=== PATIENT | female | born 1985 | race Two or more races ===

== ENCOUNTER 2018-12-10 09:55 | Emergency (ER) | payer SELFPAY | END 2018-12-10 10:02 | disposition left against medical advice (07) | LOC: ER 09:55 | DX: R06.02 Shortness of breath (principal); R11.2 Nausea with vomiting, unspecified; Z53.21 Procedure and treatment not carried out due to patient leaving prior to being seen by health care provider ==

== ENCOUNTER 2020-03-25 02:52 | Emergency (ER) | payer MEDICAID ==
[~2020-03-25] VITALS: Ht 167.6 cm; Wt 97.7 kg
[2020-03-25 03:41] VITALS: BP 140/74
--- NOTE | 2020-03-25 04:24 | PHYS DOC ---
Past Medical History Past Medical History: Anxiety, Asthma, Bipolar, Depression, Other Additional Past Medical Histor: CHRONIC KNEE PAIN Past Surgical History: Tubal ligation, Other Additional Past Surgical Histo: RIGHT KNEE SX 2007 Smoking Status: Former Smoker Alcohol Use: Occasionally Drug Use: None General Adult EDM: Chief Complaint: LOWER EXT PAIN HPI: HPI: 32-year-old female with underlying history of bipolar, asthma presents to the emergency department with complaints of right knee pain. Patient denies any in jury that she is aware of. She states she was walking her dog up a hill today and may have injured it that way however is unsure. Patient is able to ambulate however complains of pain. She has no evidence of erythema/warmth appreciated to right know. Patient denies fever, nausea, vomiting. Movements make her pain worse, nothing makes her pain better. Review of Systems: Review of Systems: Constitutional: Denies fever or chills. [] Respiratory: Denies cough or shortness of breath. [] Cardiovascular: Denies chest pain or edema. [] GI: Denies abdominal pain, nausea, vomiting, bloody stools or diarrhea. [] Musculoskeletal: No back pain, right knee pain Neurologic: Denies headache, focal weakness or sensory changes. [] Heart Score: Risk Factors: Risk Factors: DM, Current or recent (<one month) smoker, HTN, HLP, family history of CAD, obesity. Risk Scores: Score 0 - 3: 2.5% MACE over next 6 weeks - Discharge Home Score 4 - 6: 20.3% MACE over next 6 weeks - Admit for Clinical Observation Score 7 - 10: 72.7% MACE over next 6 weeks - Early Invasive Strategies Current Medications: Current Medications Medications (Trade) Dose Ordered Sig/[facility] Start Time Stop Time Status Last Admin Dose Admin Ketorolac Tromethamine (Toradol Im) 60 mg 1X ONCE 03/25/20 04:00 03/25/20 04:01 UNV Allergies: Allergies: Allergies Coded Allergies Type Severity Reaction Last Updated Verified No Known Drug Allergies 05/18/19 No Physical Exam: PE: Constitutional: Well developed, well nourished, no acute distress, non-toxic appearance. [] Cardiovascular:Heart rate regular rhythm, no murmur [] Lungs & Thorax: Bilateral breath sounds clear to auscultation [] Skin: Warm, dry, no erythema, no rash. [] Back: No tenderness, no CVA tenderness. [] Extremities: No tenderness, no cyanosis, no clubbing, ROM intact, no edema. [] Neurologic: Alert and oriented X 3, no focal deficits noted. [] Psychologic: Affect normal, judgement normal, mood normal. [] Current Patient Data: Vital Signs: Vital Signs Date Time Temp Pulse Resp B/P (MAP) Pulse Ox O2 Delivery O2 Flow Rate FiO2 03/25/20 03:41 97.8 65 16 140/74 (96) 99 Room Air 97.8 EKG: EKG: [] Radiology/Procedures: Radiology/Procedures: [] Course & Med Decision Making: Course & Med Decision Making Pertinent Labs and Imaging studies reviewed. (See chart for details) []32-year-old female with underlying history of bipolar, asthma presents to the emergency department with complaints of right knee pain. Patient denies any injury that she is aware of. She states she was walking her dog up a hill today and may have injured it that way however is unsure. Patient is able to ambulate however complains of pain. She has no evidence of erythema/warmth appreciated to right know. Patient denies fever, nausea, vomiting. Movements make her pain worse, nothing makes her pain better. Dragon Disclaimer: SADAR 3D Disclaimer: This electronic medical record was generated, in whole or in part, using a voice recognition dictation system. Departure Departure Impression: Primary Impression: Strain of right knee Qualified Codes: S86.911A - Strain of unspecified muscle(s) and tendon(s) at lower leg level, right leg, initial encounter Disposition: HOME, SELF-CARE Condition: STABLE Referrals: UNKNOWN PCP NAME (PCP) Patient Instructions: Knee Pain, [id number] Cyclobenzaprine Hcl (CYCLOBENZAPRINE HCL) 10 Mg Tablet 1 TAB PO TID PRN for MUSCLE SPASMS, #21 TAB Prov: CRISTAL ZALDIVAR MD 03/25/20 Tramadol Hcl (TRAMADOL HCL) 50 Mg Tablet 50 MG PO Q6-8HRS PRN for PAIN, #8 TAB 0 Refills Prov: CRISTAL ZALDIVAR MD 03/25/20 Justicifation of Admission Dx: Justifications for Admission: Justification of Admission Dx: N/A CRISTAL ZALDIVAR MD Mar 25, 2020 04:24
[2020-03-25] MEDS ORDERED: KETOROLAC 60 MG/2 ML VIAL. IM ONE (04:30)
[2020-03-25] MEDS ORDERED: TRAM50TA PO (04:42)
[2020-03-25] MEDS ORDERED: CYCL10TA2 PO (04:42)
--- NOTE | 2020-03-25 04:42 | RAD ---
Right knee 3 views: Reason for examination: Knee pain. Unknown injury. Previous right knee surgery. Comparison is made to previous studies dated 06/10/2019 and 02/24/2019. No acute fracture or dislocation is seen. There appears to be chronic fragmentation at the tibial tuberosity. Small lytic lesions with sclerotic margins are again seen at the distal femur and patella which are probably related to previous surgery. There are degenerative changes with some hypertrophic spurring. Joint spaces appear to be fairly well-maintained. No joint effusion is evident. IMPRESSION: No acute abnormality evident in the right knee. Electronically signed by: Evy Garcia MD (03/25/2020 4:39 AM) [id number]
== END 2020-03-25 04:50 | disposition home or self-care (01) ==
LOC: ER 02:52
DX: S86.811A Strain of other muscle(s) and tendon(s) at lower leg level, right leg, initial encounter (principal); F41.9 Anxiety disorder, unspecified; J45.909 Unspecified asthma, uncomplicated; G89.29 Other chronic pain; F32.9 Major depressive disorder, single episode, unspecified; Z98.51 Tubal ligation status; Z98.890 Other specified postprocedural states; Z87.891 Personal history of nicotine dependence; W54.8XXA Other contact with dog, initial encounter; Y93.89 Activity, other specified; Y92.89 Other specified places as the place of occurrence of the external cause; Y99.8 Other external cause status
CPT/HCPCS: 73562; 81025; 96372; 99283; J1885

== ENCOUNTER 2020-04-20 02:46 | Emergency (ER) | payer MEDICAID ==
[~2020-04-20] VITALS: Ht 167.6 cm; Wt 97.7 kg
[~2020-04-20 02:46] MED LIST: CYCL10TA2 PO; TRAM50TA PO
[2020-04-20] MEDS ORDERED: IV NORMAL SALINE 1000ML BAG 1,000 ML IV ONE (04:00)
[2020-04-20] MEDS ORDERED: diphenhydrAMINE 50 MG/ML VIAL IVP ONE (04:00)
[2020-04-20] MEDS ORDERED: METOCLOPRAMIDE HCL 10 MG/2 ML VIAL. IVP ONE (04:00)
[2020-04-20 04:20] LABS: BASO # 0.1 x10^3/uL (0.0-0.2); BASO % 1 % (0-3); EOS # 0.3 x10^3/uL (0.0-0.7); EOS % 4 % (0-3); HEMATOCRIT 41.7 % (36.0-47.0); HEMOGLOBIN 14.1 g/dL (12.0-15.5); LYMPH # 2.6 x10^3/uL (1.0-4.8); LYMPH % 31 % (24-48); MEAN CORPUSCULAR HEMOGLOBIN 32 pg (25-35); MEAN CORPUSCULAR HGB CONC 34 g/dL (31-37); MEAN CORPUSCULAR VOLUME 95 fL (79-100); MONO # 0.7 x10^3/uL (0.0-1.1); MONO % 8 % (0-9); NEUT # 4.6 x10^3/uL (1.8-7.7); NEUT % 56 % (31-73); PLATELET COUNT 254 x10^3/uL (140-400); RED BLOOD COUNT 4.41 x10^6/uL (3.50-5.40); RED CELL DISTRIBUTION WIDTH 13.3 % (11.5-14.5); WHITE BLOOD COUNT 8.2 x10^3/uL (4.0-11.0)
[2020-04-20 04:31] LABS: CALCIUM 8.1 mg/dL (8.5-10.1); CREATININE 0.9 mg/dL (0.6-1.0); GFR 72.6; POTASSIUM 3.5 mmol/L (3.5-5.1)
[2020-04-20 04:39] LABS: ALBUMIN 3.6 g/dL (3.4-5.0); TOTAL BILIRUBIN 0.2 mg/dL (0.2-1.0); TOTAL PROTEIN 7.1 g/dL (6.4-8.2)
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
[2020-04-20] MEDS ORDERED: PROM25TA10 PO (05:14)
[2020-04-20] MEDS ORDERED: NAPR-683 PO (05:14)
[2020-04-20] MEDS ORDERED: KETOROLAC 15 MG/ML VIAL. IVP ONE (05:15)
[2020-04-20 05:38] VITALS: BP 111/63
--- NOTE | 2020-04-21 11:35 | NUR ---
IP: Informed pt of COVID negative results. Pt verbalized understanding.
== END 2020-04-20 05:55 | disposition home or self-care (01) ==
LOC: ER 02:46
DX: G43.909 Migraine, unspecified, not intractable, without status migrainosus (principal); Z20.828 Contact with and (suspected) exposure to other viral communicable diseases; R11.2 Nausea with vomiting, unspecified; F41.9 Anxiety disorder, unspecified; J45.909 Unspecified asthma, uncomplicated; F32.9 Major depressive disorder, single episode, unspecified; Z87.891 Personal history of nicotine dependence; Z98.51 Tubal ligation status; Z98.890 Other specified postprocedural states
CPT/HCPCS: 36415; 80053; 81025; 85025; 96361; 96374; 96375; 99285; J1200; J1885; J2765; J7030; U0003

== ENCOUNTER 2020-06-03 02:16 | Emergency (ER) | payer MEDICAID ==
[~2020-06-03] VITALS: Ht 167.6 cm; Wt 104.5 kg
[~2020-06-03 02:16] MED LIST changes: +NAPR-683 PO; +PROM25TA10 PO
[2020-06-03 02:50] VITALS: BP 142/75
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
[2020-06-03] MEDS ORDERED: KETOROLAC 30 MG/ML VIAL. IM ONE (03:15)
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
[2020-06-03] MEDS ORDERED: AMOX1TAB61 PO (03:40)
[2020-06-03] MEDS ORDERED: HYDR-3164 PO (03:40)
== END 2020-06-03 03:55 | disposition home or self-care (01) ==
LOC: ER 02:16 → EEVIPCON 02:16 → ER 03:55
DX: S02.2XXB Fracture of nasal bones, initial encounter for open fracture (principal); S60.212A Contusion of left wrist, initial encounter; S00.03XA Contusion of scalp, initial encounter; R10.12 Left upper quadrant pain; M25.532 Pain in left wrist; R60.0 Localized edema; F41.9 Anxiety disorder, unspecified; J45.909 Unspecified asthma, uncomplicated; F32.9 Major depressive disorder, single episode, unspecified; G89.29 Other chronic pain; Z98.890 Other specified postprocedural states; Z98.51 Tubal ligation status; Y08.89XA Assault by other specified means, initial encounter; Y93.89 Activity, other specified; Y92.89 Other specified places as the place of occurrence of the external cause; Y99.8 Other external cause status
CPT/HCPCS: 70450; 70486; 72125; 73110; 96372; 99285; J1885

== ENCOUNTER 2021-03-05 00:13 | Emergency (ER) | payer MEDICAID ==
[~2021-03-05] VITALS: Ht 167.6 cm; Wt 97.7 kg
[~2021-03-05 00:13] MED LIST changes: +AMOX1TAB61 PO; +HYDR-3164 PO
[2021-03-05] MEDS ORDERED: TRIA15CR3 TP (01:59)
--- NOTE | 2021-03-05 02:00 | ED.ADGEN ---
Past Medical History Past Medical History: Anxiety, Asthma, Bipolar, Depression, Other Additional Past Medical Histor: CHRONIC KNEE PAIN, PANIC ATTACKS Past Surgical History: Tubal ligation, Other Additional Past Surgical Histo: RIGHT KNEE SX 2007 Smoking Status: Never Smoker Alcohol Use: None Drug Use: None General Adult EDM: Chief Complaint: SKIN PROBLEM HPI: HPI: Patient is a 35 year old female presenting to the emergency department with a rash on the dorsum of her left hand. Patient states that rash is burning and has been there 3 days. Is been using unscented lotions without improvement. Denies any known irritants or allergies. No history of eczema. Patient states she usually cleans the house with chemicals with bleach. Review of Systems: Review of Systems: All other systems within normal limits except for as noted in the HPI Allergies: Allergies: Allergies Coded Allergies Type Severity Reaction Last Updated Verified No Known Drug Allergies 05/18/19 No Physical Exam: PE: Constitutional: Well developed, well nourished, no acute distress, non-toxic appearance. [] HENT: Normocephalic, atraumatic, bilateral external ears normal, nose normal. [] Eyes: PERRLA, conjunctiva normal, no discharge. [] Neck: No rigidity, supple, no stridor. [] Cardiovascular: Regular rate and rhythm, brisk cap refill [] Lungs & Thorax: Non labored symmetric respirations, no tachypnea or respiratory distress [] Abdomen: Soft, nondistended. Skin: Warm, dry, no erythema, fine papular rash to dorsum of left hand [] Back: Unremarkable Extremities: No deformities, range of motion grossly intact, no lower extremity edema [] Neurologic: Alert and oriented X 3, no focal deficits noted. [] Psychologic: Affect normal, judgement normal, mood normal. [] Current Patient Data: Vital Signs: Vital Signs Date Time Temp Pulse Resp B/P (MAP) Pulse Ox O2 Delivery O2 Flow Rate FiO2 03/05/21 01:10 98.0 65 20 121/70 (97) 98 Room Air 98.0 EKG: EKG: [] Heart Score: C/O Chest Pain: No Risk Factors: Risk Factors: DM, Current or recent (<one month) smoker, HTN, HLP, family history of CAD, obesity. Risk Scores: Score 0 - 3: 2.5% MACE over next 6 weeks - Discharge Home Score 4 - 6: 20.3% MACE over next 6 weeks - Admit for Clinical Observation Score 7 - 10: 72.7% MACE over next 6 weeks - Early Invasive Strategies Radiology/Procedures: Radiology/Procedures: [] Course & Med Decision Making: Course & Med Decision Making Pertinent Labs and Imaging studies reviewed. (See chart for details) [] Dragon Disclaimer: Dragon Disclaimer: This electronic medical record was generated, in whole or in part, using a voice recognition dictation system. Departure Departure Impression: Primary Impression: Rash and nonspecific skin eruption Disposition: HOME / SELF CARE / HOMELESS Condition: STABLE Referrals: NO PCP (PCP) Patient Instructions: Rash Scripts Triamcinolone Acetonide (TRIAMCINOLONE ACETONIDE 0.1% CREAM) 15 Gm Cream..g. 1 JO TP BID for rash for 7 Days, #14 EACH Prov: CHERY JO MD 03/05/21 CHERY JO MD Mar 05, 2021 01:59
[2021-03-05 02:34] VITALS: BP 116/65
== END 2021-03-05 02:36 | disposition home or self-care (01) ==
LOC: ER 00:13
DX: R21 Rash and other nonspecific skin eruption (principal); F31.9 Bipolar disorder, unspecified; J45.909 Unspecified asthma, uncomplicated; G89.29 Other chronic pain
CPT/HCPCS: 99283